=== PATIENT | female | born 1985 | race Caucasian/White ===

== ENCOUNTER 2017-01-22 11:44 | Inpatient (IN) | payer MEDICAID ==
[~2017-01-22] VITALS: Ht 170.2 cm; Wt 94.3 kg
[2017-01-22] VITALS (26 sets, daily range): BP systolic 83–151; BP diastolic 53–105; PULSE 51–87; RESP 16–22; TEMP 97–98.4
[~2017-01-22 11:44] MED LIST: PREV30CA36 PO; SUCR1TAB6 PO; SULF1TAB47 PO; TRAM50 PO; Z.0.NO CURRENT MEDS
[2017-01-22] MEDS ORDERED: LACTATED RINGER'S 1000 ML INJ 1,000 ML IV PRN (12:28)
--- NOTE | 2017-01-22 12:28 | HHI.HP ---
HPI Chief Complaint Contractions Date Seen: Jan 22, 2017 Travel History International Travel<30 Days: No Contact w/Intl Traveler<30Days: No Known Affected Area: No History of Present Illness HPI This patient is a 31-year-old white female at 36 weeks and 6 days presents complaining of regular contractions. She denies bleeding or rupture the membranes. Baby is active. heart rate tracing is reactive and she is lu every 5 minutes. She's patient of Dr. Musa and she has a known history of drug use is on Subutex now Para: 3 : 5 History Obstetric History Obstetric History 3 vaginal deliveries 1 early loss Social History Alcohol Use: Yes Tobacco Use: Yes Substance Abuse: Yes Allergies-Medications (Allergen,Severity, Reaction): Coded Allergies: No Known Allergies (Verified , 01/19/07) Home Meds Active Scripts Lansoprazole (Prevacid)30 Mg Capcr30 Mg PO DAILY #30 Ref 0 Prov:José Miguel Berg MD 11/22/08 Sucralfate (Carafate)1 Gm Tab1 Gm PO TIDACHS #120 Ref 0 Prov:José Miguel Berg MD 11/22/08 Tramadol Hcl (Ultram)50 Mg Tab1-2 Tab PO Q6HPRN #20 Ref 0 FOR PAIN Prov:Ike Quiñonez MD 11/06/08 Trimethoprim/Sulfamethoxazole (Bactrim Ds) Tab1 Tab PO BID #20 Ref 0 Prov:Ike Quiñonez MD 11/06/08 Reported Medications Miscellaneous (No Current Meds) [facility] [place] 12/07/08 Review of Systems General / Constitutional: No: Fever, Weight Gain, Chills, Other Eyes: No: Diploplia, Blurred Vision, Visual changes, Pain, Photophobia HENT: No: Headaches, Vertigo, Lightheadedness Cardiovascular: No: Irregular Rhythm, Chest Pain or Discomfort, Palpitations, Tachycardia, Syncope, Varicosities, Edema, Cyanosis Respiratory: No: Cough, Short of Breath, Other Gastrointestinal: Abdominal Pain, No: Nausea, Vomiting, Diarrhea Genitourinary: No: Decreased Urinary Output, Oliguria Musculoskeletal: No: Limited ROM, Weakness, Cramping, Edema, Pain Skin: No Rash, No Itching, No Dryness, No Lumps, No Change in Pigmentation, No Change in Nails, No Alopecia, No Lesions Neurologic: No: Weakness, Dizziness, Syncope, Focal Abnormalities, Coordination Problem, Headache, Slurred Speech, Seizures Psychiatric: No: Depression, Suicidal Ideations, Homicidal Ideation Endocrine: No: Heat Intolerance, Cold Intolerance, Polydipsia, Polyuria, Other Physical Exam Narrative GENERAL: Well-nourished, well-developed patient. SKIN: Warm and dry. HEAD: Normocephalic and atraumatic. EYES: No scleral icterus. No injection or drainage. ENT: No nasal drainage noted. Mucous membranes pink. Airway patent. NECK: Supple, trachea midline. No JVD. CARDIOVASCULAR: Regular rate and rhythm without murmurs, gallops, or rubs. RESPIRATORY: Breath sounds equal bilaterally. No accessory muscle use. BREASTS: Bilateral exam showed no masses , no retractions, no nipple discharge. ABDOMEN/GI: Abdomen soft, non-tender, bowel sounds present, no rebound, no guarding Gravid to [36-] weeks size Fundal Height: [-36] GENITOURINARY: External Genitalia: intact and normal in appearance BUS glands: [-] Cervix: [-] Dilatation: [7 cm-] Effacement: [-] 90% Station: [0-] Presentation: [Vertex-] Membranes: [intact ] bulging bag of water Uterine Contractions: [Regular-] FHT's: Category: [-1] Baseline: [133-] Reactive: [yes-] Variability: [-mod] Decels: [none-] EXTREMITIES: No cyanosis or edema. BACK: Nontender without obvious deformity. No CVA tenderness. NEUROLOGICAL: Awake and alert. Motor and sensory grossly within normal limits. Five out of 5 muscle strength in all muscle groups. Normal speech. Assessment/Plan Assessment and Plan The patient is a 31-year-old white female A1 at 36-37 weeks presents in active labor. Patient cervix 7 cm 90% and 0 station, vertex presentation with a bulging bag water. Contractions are regular heart rate tracing is reactive. This patient's doctor is Dr. Walsh Impressions active labor at 36-37 weeks plan admission to the hospital for labor management vaginal delivery Dagoberto Braga II, MD Jan 22, 2017 12:28
[2017-01-22] MEDS ORDERED: CITRIC ACID-SODIUM CITRATE LIQ 30 ML UDC PO SCH (12:30)
[2017-01-22] MEDS ORDERED: LIDOCAINE HCL 1% 50 ML VIAL I-DERMAL PRN (12:30)
[2017-01-22] MEDS ORDERED: PENICILLIN G POTASSIUM INJ 5,000,000 UNITS in SODIUM CHLORIDE 0.9% INJ 100 ML IV ONE (12:30)
[2017-01-22] MEDS ORDERED: MINERAL OIL 10 ML VIAL TOPICAL PRN (12:30)
[2017-01-22] MEDS ORDERED: LIDOCAINE HCL 1% 50 ML VIAL INFIL PRN (12:30)
[2017-01-22] MEDS ORDERED: OXYTOCIN 30 UNITS-500ML PREMIX 500 ML IV ONE (12:30)
[2017-01-22] MEDS ORDERED: SODIUM CHLORID 0.9% 500 ML INJ 500 ML IV PRN (12:30)
[2017-01-22] MEDS ORDERED: SODIUM CHLOR 0.9% 1000 ML INJ 1,000 ML IV PRN (12:48)
[2017-01-22] MEDS ORDERED: subutex PO (12:49)
[2017-01-22] MEDS: LACTATED RINGER'S 1000 ML INJ 1,000 ML IV SCH (12:57)
[2017-01-22] MEDS ORDERED: CALNTAB (13:00)
[2017-01-22 13:01] LABS: AUTOMATED NEUTROPHIL # 6.2 TH/MM3 (1.8-7.7); BASOPHIL % 0.1 % (0.0-2.0); EOSINOPHIL # 0.1 TH/MM3 (0-0.4); EOSINOPHIL % 0.9 % (0.0-4.0); HEMATOCRIT 37.4 % (35.0-46.0); HEMO FLAGS DIFF FINAL; LYMPH % 20.3 % (9.0-44.0); LYMPHOCYTE # 1.8 TH/MM3 (1.0-4.8); MEAN CELL VOLUME 88.6 FL (80.0-100.0); MEAN CORPUSCULAR HEMOGLOBIN 29.3 PG (27.0-34.0); MONO % 8.9 % (0.0-8.0); NEUT % 69.8 % (16.0-70.0); PLATELET COUNT 219 TH/MM3 (150-450); RED BLOOD COUNT 4.22 MIL/MM3 (4.00-5.30); RED CELL DISTRIBUTION WIDTH 12.5 % (11.6-17.2); WHITE BLOOD COUNT 8.9 TH/MM3 (4.0-11.0)
[2017-01-22] MEDS ORDERED: fentaNYL 2MCG-BUPIV 0.125% INJ 100 ML ONE (13:03)
[2017-01-22 13:08] LABS: BACTERIA, URINE FEW /hpf; BLOOD, URINE NEG (NEG); COMMENT (UR) CULTURE INDICATED; CULTURE IF INDICATED CULTURE INDICATED; GLUCOSE,URINE NEG (NEG); KETONE, URINE NEG (NEG); NITRITE,URINE NEG (NEG); PH, URINE 7.5 (5.0-8.5); SQUAMOUS EPITHELIAL CELL URINE 4 /hpf (0-5); URINE COLOR YELLOW (YELLW/STRAW)
[2017-01-22 13:11] LABS: AMPHETAMINE, URINE NEG (NEG); BARBITURATES, URINE NEG (NEG); COCAINE, URINE NEG (NEG)
[2017-01-22] MEDS ORDERED: ePHEDrine/NS 25 MG/5 ML SYR ONE (13:32)
[2017-01-22] MEDS ORDERED: NO SYSTEM NARCOTICS PRN (14:00)
[2017-01-22] MEDS ORDERED: fentaNYL 2MCG-BUPIV 0.125% 100 ML EPIDURAL SCH (14:00)
[2017-01-22] MEDS ORDERED: ePHEDrine/NS 25 MG/5 ML SYR IV PRN (14:00)
[2017-01-22] MEDS ORDERED: DO NOT ADMINISTER ANTICOAGULANTS PRN (14:00)
--- NOTE | 2017-01-22 15:02 | PD.OB.DELI ---
Anesthesia: Epidural Episiotomy: None Vaginal Delivery: Normal Presentation: Occiput anterior Nuchal Cord: None Delayed cord clamping (45 sec): Yes Infant: Male One Minute : 9 Five Minute : 9 Placenta: Spontaneous delivery, Intact, 3 vessel cord Edy Rios MD Jan 22, 2017 15:02
[2017-01-22] MEDS ORDERED: WITCH HAZEL 50%/GLYCERIN 12.5% 40 PAD JAR TOPICAL PRN (15:15)
[2017-01-22] MEDS ORDERED: ALUMINUM/MAGNESIUM/SIMETH 30 ML CUP PO PRN (15:15)
[2017-01-22] MEDS ORDERED: ZOLPIDEM TARTRATE 5 MG TAB PO PRN (15:15)
[2017-01-22] MEDS ORDERED: BENZOCAINE 20% TOPICAL SPRAY 60 ML CAN TOPICAL PRN (15:15)
[2017-01-22] MEDS ORDERED: DOCUSATE SODIUM 50 MG/SENNA 8.6 MG TAB PO PRN (15:15)
[2017-01-22] MEDS ORDERED: ONDANSETRON ODT 4 MG TAB PO PRN (15:15)
[2017-01-22] MEDS ORDERED: SODIUM CHLORIDE 0.9% FLUSH 10 ML FLUSH IV FLUSH PRN (15:15)
[2017-01-22] MEDS ORDERED: OXYTOCIN 10 UNIT/ML AMP XX PRN (15:15)
[2017-01-22] MEDS ORDERED: MEASLES, MUMPS, RUBELLA VACCINE 0.5 ML VIAL SQ ONE (16:00)
[2017-01-22] MEDS ORDERED: DIPHTH/TETANUS/ACEL PERTUSSIS (BOOSTER) 0.5 ML VIAL/PFS IM ONE (16:00)
[2017-01-22] MEDS: ACETAMINOPHEN 325 MG TAB PO PRN ×2 (16:55→22:49)
[2017-01-22] MEDS: IBUPROFEN 600 MG TAB PO PRN ×2 (16:56→22:49)
[2017-01-22] MEDS ORDERED: SODIUM CHLORIDE 0.9% FLUSH 10 ML FLUSH IV FLUSH SCH (21:00)
[2017-01-23 07:40] VITALS: BP 122/75; PULSE 53; RESP 16; TEMP 98.2; O2SAT 98
[2017-01-23] MEDS: ACETAMINOPHEN 325 MG TAB PO PRN ×2 (10:13→19:19)
[2017-01-23] MEDS: IBUPROFEN 600 MG TAB PO PRN (10:13)
--- NOTE | 2017-01-23 10:54 | HHI.OB ---
Subjective Post Day: 1 Remarks PPD#1, Stable, to NICU,BREE Objective Vitals/I&O Vital Signs Date Time Temp Pulse Resp B/P Pulse Ox O2 Delivery O2 Flow Rate FiO2 01/22/17 20:00 97.9 51 16 114/69 01/22/17 17:20 98.0 60 18 128/71 01/22/17 16:00 64 105/69 01/22/17 15:46 97.0 16 01/22/17 15:45 64 127/80 01/22/17 15:30 70 127/80 01/22/17 15:29 71 125/82 01/22/17 15:15 78 138/75 01/22/17 15:01 78 130/103 01/22/17 14:45 61 114/70 01/22/17 14:31 57 92/53 01/22/17 14:15 65 125/71 01/22/17 14:00 69 126/65 01/22/17 13:45 87 119/77 01/22/17 13:43 83 128/91 01/22/17 13:39 83 123/75 01/22/17 13:36 61 104/60 01/22/17 13:33 67 106/66 01/22/17 13:31 67 103/66 01/22/17 13:30 67 83/54 01/22/17 13:27 69 113/69 01/22/17 13:25 62 106/61 01/22/17 13:20 63 116/64 01/22/17 13:16 64 141/89 01/22/17 13:12 98.4 77 22 151/105 01/22/17 13:07 76 132/78 Objective Remarks GENERAL: Well-nourished, well-developed patient. CARDIOVASCULAR: Regular rate and rhythm without murmurs, gallops, or rubs. RESPIRATORY: Breath sounds equal bilaterally. No accessory muscle use. ABDOMEN/GI: Abdomen soft, non-tender. Fundus: Firm, non-tender at umbilicus. GENITOURINARY: Light to moderate bleeding. EXTREMITIES: No cyanosis or edema, non-tender, without signs of DVT. Medications and IVs Current Medications Medications (Trade) Dose Ordered Sig/Stephenie Route Start Time Stop Time Status Last Admin Lactated Ringer's 1,000 ml @ 125 mls/hr Q8H IV 4/15/17 12:28 01/22/17 12:57 Lactated Ringer's 1,000 ml @ 3,000 mls/hr Q20M PRN IV 01/22/17 12:28 (NS 1000 ml Inj) 1,000 ml @ 100 mls/hr Q10H PRN IV 01/22/17 12:48 (fentaNYL INJ) 50 mcg Q1H PRN IV PUSH 01/22/17 12:30 Fentanyl Citrate 100 mcg 100 mcg Q1H PRN IV PUSH 01/22/17 12:30 01/22/17 13:02 (Pfizerpen-G Inj/ NS Inj) 100 ml @ 200 mls/hr Q4H IV 01/22/17 17:00 (Muri-Lube Oil) 10 ml UNSCH PRN TOPICAL 01/22/17 12:30 Miscellaneous Information No systemic narcotics to be given except... UNSCH PRN .XX 01/22/17 14:00 01/23/17 13:59 Miscellaneous Information DO NOT ADMINISTER ANY ANTICOAGUL... UNSCH PRN .XX 01/22/17 14:00 01/23/17 13:59 (fentaNYL 2MCG-BUPIV 0.125% INJ) 100 ml @ 0 mls/hr TITRATE EPIDURAL 01/22/17 14:00 (ePHEDrine/NS 25 MG/5 ML SYR) 10 mg UNSCH PRN IV 01/22/17 14:00 01/23/17 13:59 (NS Flush) 2 ml BID IV FLUSH 01/22/17 21:00 (NS Flush) 2 ml UNSCH PRN IV FLUSH 01/22/17 15:15 (Tylenol) 650 mg Q4H PRN PO 01/22/17 15:15 01/23/17 10:13 (Motrin) 600 mg Q6H PRN PO 01/22/17 15:15 01/23/17 10:13 (Americaine 20% Top Spr) 1 spray Q4H PRN TOPICAL 01/22/17 15:15 01/22/17 16:54 (Tucks Pads) 1 applic QID PRN TOPICAL 01/22/17 15:15 01/22/17 16:55 (Nayana-Colace) 2 tab Q12H PRN PO 01/22/17 15:15 (Ambien) 5 mg HS PRN PO 01/22/17 15:15 (Mag-Al Plus Susp Liq) 15 ml Q8H PRN PO 01/22/17 15:15 (Zofran Odt) 4 mg Q6H PRN PO 01/22/17 15:15 Assessment/Plan Assessment and Plan PPD#1, s/p vaginal delivery. Stable. is in nicu for BREE Discharge Planning Does not meet criteria Edy Rios MD Jan 23, 2017 10:54
--- NOTE | 2017-01-23 10:56 | HHI.DS ---
Admission Date Jan 22, 2017 at 12:29 Admitting Diagnosis Diagnosis: Vaginal Delivery: Normal : Male Brief History This patient is a 31-year-old white female at 36 weeks and 6 days presents complaining of regular contractions. She denies bleeding or rupture the membranes. Baby is active. heart rate tracing is reactive and she is lu every 5 minutes. She's patient of Dr. Musa and she has a known history of drug use is on Subutex now Pt Condition on Discharge: Good Discharge Disposition: Discharge Home Discharge Instructions Diet Instructions: As Tolerated, No Restrictions Activities You Can Perform: Shower Only-No Bath Activities to Avoid: Driving for 24 hrs, Prolonged Standing, Strenuous Activity , Sexual Activity Edy Rios MD Jan 23, 2017 10:56
[2017-01-23] MEDS ORDERED: IBUPROFEN 800 MG TAB PO SCH (14:00)
[2017-01-23 19:50] VITALS: BP 116/73; PULSE 57; RESP 18; TEMP 97.8
[2017-01-24] MEDS: IBUPROFEN 800 MG TAB PO PRN ×2 (02:04→09:32)
[2017-01-24] MEDS: ACETAMINOPHEN 325 MG TAB PO PRN ×2 (02:04→09:32)
[2017-01-24] MEDS: LACTATED RINGER'S 1000 ML INJ 1,000 ML IV SCH ×2 (04:28→12:28)
[2017-01-24] MEDS: PENICILLIN G POTASSIUM INJ 2,500,000 UNITS in SODIUM CHLORIDE 0.9% INJ 100 ML IV SCH ×3 (05:00→12:29)
[2017-01-24] MEDS ORDERED: IBUP800T23 PO (07:32)
--- NOTE | 2017-01-24 07:33 | HHI.OB ---
Subjective Post Day: 2 Remarks doing well, pain well controlled. baby started on morphine for BREE Objective Vitals/I&O Vital Signs Date Time Temp Pulse Resp B/P Pulse Ox O2 Delivery O2 Flow Rate FiO2 01/23/17 19:50 97.8 57 18 116/73 01/23/17 07:40 98.2 01/23/17 07:40 53 16 122/75 98 Objective Remarks GENERAL: Well-nourished, well-developed patient. CARDIOVASCULAR: Regular rate and rhythm without murmurs, gallops, or rubs. RESPIRATORY: Breath sounds equal bilaterally. No accessory muscle use. ABDOMEN/GI: Abdomen soft, non-tender. Fundus: Firm, non-tender at umbilicus. GENITOURINARY: Light to moderate bleeding. EXTREMITIES: No cyanosis or edema, non-tender, without signs of DVT. Medications and IVs Current Medications Medications (Trade) Dose Ordered Sig/Stephenie Route Start Time Stop Time Status Last Admin Lactated Ringer's 1,000 ml @ 125 mls/hr Q8H IV 01/22/17 12:28 01/22/17 12:57 Lactated Ringer's 1,000 ml @ 3,000 mls/hr Q20M PRN IV 01/22/17 12:28 (NS 1000 ml Inj) 1,000 ml @ 100 mls/hr Q10H PRN IV 01/22/17 12:48 (fentaNYL INJ) 50 mcg Q1H PRN IV PUSH 01/22/17 12:30 Fentanyl Citrate 100 mcg 100 mcg Q1H PRN IV PUSH 01/22/17 12:30 01/22/17 13:02 (Pfizerpen-G Inj/ NS Inj) 100 ml @ 200 mls/hr Q4H IV 01/22/17 17:00 Mineral Oil 10 ml 10 ml UNSCH PRN TOPICAL 01/22/17 12:30 (fentaNYL 2MCG-BUPIV 0.125% INJ) 100 ml @ 0 mls/hr TITRATE EPIDURAL 01/22/17 14:00 (NS Flush) 2 ml BID IV FLUSH 01/22/17 21:00 (NS Flush) 2 ml UNSCH PRN IV FLUSH 01/22/17 15:15 (Tylenol) 650 mg Q4H PRN PO 01/22/17 15:15 01/24/17 02:04 (Americaine 20% Top Spr) 1 spray Q4H PRN TOPICAL 01/22/17 15:15 01/22/17 16:54 (Tucks Pads) 1 applic QID PRN TOPICAL 01/22/17 15:15 01/22/17 16:55 (Nayana-Colace) 2 tab Q12H PRN PO 01/22/17 15:15 01/24/17 02:03 (Ambien) 5 mg HS PRN PO 01/22/17 15:15 (Mag-Al Plus Susp Liq) 15 ml Q8H PRN PO 01/22/17 15:15 (Zofran Odt) 4 mg Q6H PRN PO 01/22/17 15:15 (Motrin) 800 mg Q6H PRN PO 01/23/17 21:30 01/24/17 02:04 Assessment/Plan Assessment and Plan PPD#2, s/p vaginal delivery. Stable. Infant is in nicu for BREE Discharge Planning today Irina Dempsey MD Jan 24, 2017 07:33
[2017-01-24 09:29] VITALS: BP 117/66; PULSE 80; RESP 18; TEMP 98.3
[2017-01-27 22:52] LABS: PHENCYCLIDINE URINE NEG (NEG)
[2017-01-27 22:53] LABS: ECSTASY (MDMA) UR NEG (NEG); HEROIN (6-ACETYLMORPHINE) UR NEG (NEG); OBMETHADONE UR NEG (NEG)
[2017-01-27 22:54] LABS: BATH SALTS (MDPV) UR NEG (NEG); K2 SPICE UR NEG (NEG)
[2017-01-27 22:56] LABS: GABAPENTIN UR NEG (NEG); HYDROMORPHONE U POS (NEG); OXYCODONE (PERCODAN) POS (NEG)
== END 2017-01-24 13:51 | disposition home or self-care (01) | DRG 775 ==
LOC: HOBED 11:44 → H2EB 12:29 → H1EA 16:33
PROVIDERS: ADMIT Obstetrics & Gynecology; ATTEND Obstetrics & Gynecology
PROC: 10E0XZZ Delivery of Products of Conception, External Approach (ICD-10-PCS; principal; 2017-01-22)
DX: O60.14X0 Preterm labor third trimester with preterm delivery third trimester, not applicable or unspecified (principal); O99.333 Smoking (tobacco) complicating pregnancy, third trimester; Z3A.36 36 weeks gestation of pregnancy; Z37.0 Single live birth
CPT/HCPCS: 80307; 80348; 81001; 85025; 86900; 86901; 87086; 90715; 99285; G0480; G0481; J2540; J3010; J7120